=== PATIENT | male | born 1980 | race Caucasian/White ===

== ENCOUNTER 2020-02-25 15:21 | Emergency (ER) | payer SELFPAY ==
[2020-02-25 15:27] VITALS: BP 146/113; PULSE 111; RESP 18; TEMP 35.8; O2SAT 97; BMI 25.8
--- NOTE | 2020-02-25 15:40 | W.ED.GENADLT ---
HPI - General Adult General: Chief complaint: General Medical Stated complaint: detox Time Seen by Provider: 02/25/20 15:29 History of Present Illness: HPI narrative: Patient here because he is a meth and alcohol user who just recently use both yesterday and court order needs to go to [facility] for detox and here for medical clearance patient denies any health problems besides his abuse. Was in the hospital here a few months ago up in [place] for being in coma for 2 weeks MD complaint: Alcohol methamphetamine abuse Onset (ago): year(s) Associated symptoms: Deny chest pain, dyspnea, headache(s), nausea, rash or vomiting Review of Systems Const: Denies: fever(s), chills or body aches Eyes: Denies: change in vision or blurry vision ENMT: Denies: throat pain or nasal congestion Card: Denies: chest pain or dyspnea on exertion Resp: Denies: dyspnea, productive cough or non-productive cough GI: Denies: abdominal pain, nausea or vomiting : Denies: difficulty urinating Musc: Denies: extremity pain Skin/Breast: Denies: rash Neuro: Denies: headache(s) Psych: Denies: anxiety or depression Brent/Lymph: Denies: easy bruising Physical Exam Const: COMMON NORMALS: no acute distress, average body habitus and patient oriented x3 HENMT: COMMON NORMALS: normocephalic HEAD & SCALP: normal to inspection and normocephalic FACE & SINUS: normal facial exam Eye: COMMON NORMALS: conjunctivae normal GENERAL EYE: appearance normal, both eyes and all related structures CONJUNCTIVA: Yes conjunctivae normal Neck/C-Spine: COMMON NORMALS: no JVD Chest: COMMONS NORMALS: normal inspection of the chest Resp: COMMON NORMALS: normal respiratory effort and clear to auscultation bilaterally AUSCULTATION: clear to auscultation bilaterally Cardio: COMMON NORMALS: no JVD, regular rate and regular rhythm RATE: regular rate RHYTHM: regular rhythm GI: COMMON NORMALS: Normal to inspection, nondistended, normoactive bowel sounds present Extremity: COMMON NORMALS: normal to inspection and full ROM Neuro: COMMON NORMALS: patient oriented x3 Course Vital Signs: Vital signs: Vital Signs Temperature 96.4 F L 02/25/20 15:27 Pulse Rate 111 H 02/25/20 15:27 Respiratory Rate 18 02/25/20 15:27 Blood Pressure 146/113 02/25/20 15:27 Pulse Oximetry 97 02/25/20 15:27 Coding Level of Care Code ED Patient Registration Manager for Arslan Duenas
--- NOTE | 2020-02-25 15:55 | PC.NURSE ---
UA SPECIMEN AND BLOOD SPECIMEN OBTAINED AND SENT TO LAB.
[2020-02-25 16:03] VITALS: BP 123/91; PULSE 117; RESP 20; O2SAT 98
[2020-02-25 16:10] LABS: Blood Urine 2+ (Negative); Glucose Urine UA Norm (Normal); Ketones Urine 1+ (Negative); Protein Urine Neg (Negative); Urine Appearance Clear (CLEAR); Urine Color Yellow (Yellow); pH Urine 5 (5-7)
[2020-02-25 16:11] LABS: Add Urine Microscopic? YES; Bilirubin Urine 1+ (NEGATIVE); Leukocyte Esterase Urine Negative (Negative); Nitrate Urine Negative (Negative); Urobilinogen Urine 1 mg/dL (Negative)
[2020-02-25 16:15] LABS: Basophils # 0.1 10^3/uL (0.0-0.1); Basophils % 0.9 %; Eosinophils # 0.1 10^3/uL (0.0-0.8); Eosinophils % 0.7 %; Hematocrit 44.7 % (42.0-52.0); Hemoglobin 15.5 g/dL (11.7-16.6); Lymphocytes # 2.4 10^3/uL (0.8-4.8); Lymphocytes % 26.2 %; Mean Corpuscular HGB Conc 34.7 g/dL (30.0-36.0); Mean Corpuscular Hemoglobin 31.6 pg (28.0-34.0); Mean Platelet Volume 9.7 fL (7.4-10.4); Monocytes % 11.3 %; Neutrophils # 5.47 10^3/uL (1.8-7.7); Neutrophils % 60.6 %; Nucleated Red Blood Cells % 0 %; Platelet Count 322 10^3/cmm (130-400); Red Blood Count 4.91 10^6/uL (4.1-5.3); Red Cell Distribution Width 13.2 % (12.1-15.1)
[2020-02-25 16:25] LABS: Add Urine Culture? No; Bacteria Urine 1+; Calcium Oxalate Crystals Urine RARE /hpf; Mucus Urine 1+; RBC Urine 0-4 /hpf (0-2); Squamous Epithelial Cell Urine 0-4 (0-5)
[2020-02-25 16:25] LABS: Alanine Aminotransferase 44 U/L (0-41); Albumin Level 5.2 g/dL (3.5-5.2); Alkaline Phosphatase 124 IU/L (40-130); Anion Gap 16.8 (5-19); Aspartate Amino Transferase 31 U/L (0-40); Blood Urea Nitrogen 15 mg/dL (6-20); Calcium 10.3 mg/dL (8.5-10.5); Carbon Dioxide 22 mmol/L (22-29); Chloride 102 mmol/L (98-107); Creatinine Clr Calc Pharmacy 145.4803; Globulin 3.3 g/dL (1.3-4.6); Glomerular Filtration Rate 126.2 mL/min (90-130); Glucose 109 mg/dL (65-115); Osmolality Calculated 281 mOsm/kg (285-295); Potassium 3.8 mmol/L (3.5-5.1); Sodium 137 mmol/L (136-145); Total Bilirubin 1.1 mg/dL (0.15-1.2); Total Protein 8.5 g/dL (6.6-8.7)
[2020-02-25 17:00] VITALS: BP 131/91; PULSE 107; RESP 18; O2SAT 98
== END 2020-02-25 17:29 | disposition home or self-care (01) ==
PROVIDERS: Emergency Provider Nurse Practitioner Family
DX: F15.10 Other stimulant abuse, uncomplicated (principal)
CPT/HCPCS: 12345; 80053; 81001; 81003; 85025; 99281; 99283

== ENCOUNTER → 2021-02-16 10:09 | Outpatient (BNVA) | payer OTHER, SELFPAY | PROVIDERS: Visit Provider Psychiatry & Neurology Psychiatry | DX: F10.21 Alcohol dependence, in remission (principal); F15.21 Other stimulant dependence, in remission; F11.21 Opioid dependence, in remission; F17.200 Nicotine dependence, unspecified, uncomplicated | CPT/HCPCS: 80307 ==

== ENCOUNTER → 2021-04-13 11:07 | Outpatient (BNVA) | payer OTHER, SELFPAY | PROVIDERS: Visit Provider Psychiatry & Neurology Psychiatry | DX: F10.21 Alcohol dependence, in remission (principal); F15.21 Other stimulant dependence, in remission; F11.21 Opioid dependence, in remission; F17.200 Nicotine dependence, unspecified, uncomplicated | CPT/HCPCS: 80307 ==

== ENCOUNTER → 2021-06-03 11:57 | Outpatient (BNVA) | payer OTHER, SELFPAY | PROVIDERS: Visit Provider Psychiatry & Neurology Psychiatry | DX: F11.21 Opioid dependence, in remission (principal) | CPT/HCPCS: 80307 ==

== ENCOUNTER → 2021-08-25 10:37 | Outpatient (BNVA) | payer OTHER, SELFPAY | PROVIDERS: Visit Provider Psychiatry & Neurology Psychiatry | DX: Z79.899 Other long term (current) drug therapy (principal); F17.200 Nicotine dependence, unspecified, uncomplicated; F11.21 Opioid dependence, in remission; F15.21 Other stimulant dependence, in remission; F10.21 Alcohol dependence, in remission | CPT/HCPCS: 80307 ==

== ENCOUNTER → 2021-11-24 11:29 | Outpatient (BNVA) | payer SELFPAY | PROVIDERS: Visit Provider Psychiatry & Neurology Psychiatry | DX: F11.21 Opioid dependence, in remission (principal); Z79.899 Other long term (current) drug therapy; F15.21 Other stimulant dependence, in remission; F10.21 Alcohol dependence, in remission | CPT/HCPCS: 80307 ==

== ENCOUNTER → 2022-02-16 11:22 | Outpatient (BNVA) | payer OTHER, SELFPAY | PROVIDERS: Visit Provider Psychiatry & Neurology Psychiatry | DX: F11.21 Opioid dependence, in remission (principal); Z79.899 Other long term (current) drug therapy; F15.21 Other stimulant dependence, in remission; F17.200 Nicotine dependence, unspecified, uncomplicated; F10.21 Alcohol dependence, in remission | CPT/HCPCS: 80307 ==

== ENCOUNTER → 2022-05-18 11:46 | Outpatient (BNVA) | payer BC, SELFPAY | PROVIDERS: Visit Provider Psychiatry & Neurology Psychiatry | DX: Z79.899 Other long term (current) drug therapy (principal); F11.21 Opioid dependence, in remission; F15.21 Other stimulant dependence, in remission; F17.200 Nicotine dependence, unspecified, uncomplicated; F10.21 Alcohol dependence, in remission | CPT/HCPCS: 80307 ==

== ENCOUNTER → 2022-08-24 11:40 | Outpatient (BNVA) | payer OTHER, SELFPAY | PROVIDERS: Visit Provider Psychiatry & Neurology Psychiatry | DX: Z79.899 Other long term (current) drug therapy (principal); F11.21 Opioid dependence, in remission; F15.21 Other stimulant dependence, in remission | CPT/HCPCS: 80307 ==

== ENCOUNTER → 2022-11-30 11:34 | Outpatient (BNVA) | payer OTHER, SELFPAY | PROVIDERS: Visit Provider Psychiatry & Neurology Psychiatry | DX: Z79.899 Other long term (current) drug therapy (principal); F11.21 Opioid dependence, in remission; F15.21 Other stimulant dependence, in remission | CPT/HCPCS: 80307 ==

== ENCOUNTER → 2023-02-20 15:59 | Outpatient (BNVA) | payer OTHER, SELFPAY | PROVIDERS: Visit Provider Psychiatry & Neurology Psychiatry | DX: Z79.899 Other long term (current) drug therapy (principal); F15.21 Other stimulant dependence, in remission; F11.21 Opioid dependence, in remission; F10.21 Alcohol dependence, in remission | CPT/HCPCS: 80307 ==